=== PATIENT | male | born 1960 | race African-American/Black ===

== ENCOUNTER 2018-07-04 09:59 | Observation (INO) | payer OTHER ==
[2018-07-04] MEDS ORDERED: LOSARTAN POTASSIUM 50 MG TABLET (FP) PO ONE (10:22)
--- NOTE | 2018-07-04 10:40 | PDOC ---
Attending Attestation - Resident Resident Name: Alber Tong - ED Attending Attestation I have performed the following: I have examined & evaluated the patient, The case was reviewed & discussed with the resident, I agree w/resident's findings & plan, Exceptions are as noted - HPI HPI: 07/04/18 10:40 58yo M hx HTN, HL, TIA (2014, 2011) presents with elevated BP, SOB, b/l leg heaviness after running out of his BP medications 2-3 days ago. Pt states that he normally takes losartan 100mg once a day. Upon waking up, pt noted his legs felt heavy and he felt SOB when ambulating. Symptoms resolved when he sat down. Due to symptoms and running out of BP meds, he checked his BP and found it to be 180/110. Pt found an enalapril pill lying around the house and took it at 6: 45AM. Pt states he was previously on enalapril about 2yrs ago. When he checked his BP and found it to be 210/150, he presented to the ED for evaluation. PT states the heaviness in his left leg is greater than his right leg. Denies headache, chest pain, abdominal pain, N/V/D, weakness or numbness, rashes. [place] [place] [place] [place] he takes losartan 100mg/HCTZ 25mg and last filled a 30 day supply 03/07/18. Pt states he often misses a 1-2 doses per week of his medications. - Physicial Exam PE: 07/04/18 11:28 GENERAL: Awake, alert, and fully oriented, in no acute distress HEAD: No signs of trauma EYES: PERRLA, EOMI, sclera anicteric, conjunctiva clear ENT: Auricles normal inspection, hearing grossly normal, nares patent, oropharynx clear without exudates. Moist mucosa NECK: Normal ROM, supple, no lymphadenopathy, JVD, or masses LUNGS: Breath sounds equal, clear to auscultation bilaterally. No wheezes, and no crackles HEART: Regular rate and rhythm, normal S1 and S2, no murmurs, rubs or gallops ABDOMEN: Soft, nontender, normoactive bowel sounds. No guarding, no rebound. No masses EXTREMITIES: Normal range of motion, no edema. No clubbing or cyanosis. No cords, erythema, or tenderness NEUROLOGICAL: Normal speech, cranial nerves intact, negative pronator drift, 5/ 5 strength in all 4 extremities, normal sensation to light touch in all 4 extremities, normal cerebellar exam, normal gait, normal reflexes and tone SKIN: Warm, Dry, normal turgor, no rashes or lesions noted. - Medical Decision Making 07/04/18 11:29 58yo M hx HTN, HL, TIA presents to the ED with elevated BP, SOB, and L>R leg heaviness upon waking up this morning. BP elevated initially to 200s/100s, now has settled out to 180/108. Exam wnl with no objective neuro deficits. DDx includes hypertensive urgency vs emergency. Given pt last filled 30 day supply of BP meds on 03/07/18, likely elevated BP 2/2 med non compliance. EKG also reveals LVH suggesting chronically elevated BP. In light of LLE heaviness, will obtain CTH and consider MRI. SOB may be 2/2 ischemia, elevated BP or CHF. Pt has no chest or abd pain to suggest aortic dissection as cause of LE heaviness. Also pulses in LE are 2+ bounding distally. BP is equal b/l. Plan -labs -UA -CTH -anticipate admission Heart Score/ECG Review #1 07/04/18 12:20 Twelve-lead EKG was performed and reviewed by me. Normal sinus rhythm, rate 83. Normal axis. No ST elevations.+ LVH. No previous EKGs to compare.
[2018-07-04 10:47] LABS: BASO % 1.1 % (0-2.0); EOS % 1.6 % (0-4.5); HEMOGLOBIN 14.1 GM/dL (11.7-16.9); LYMPH % 18.2 % (8-40); MCH 28.7 pg (25.7-33.7); MCHC 34.3 g/dl (32.0-35.9); MEAN CELL VOLUME 83.7 fl (80-96); MONO % 9.6 % (3.8-10.2); NEUT % 69.5 % (42.8-82.8); PLATELET COUNT 197 K/MM3 (134-434); RDW 15.3 % (11.9-15.9); WHITE BLOOD COUNT 5.8 K/mm3 (4.0-10.0)
[2018-07-04 10:55] LABS: INR 0.99 (0.83-1.09); PROTHROMBIN TIME (PATIENT) 11.7 SEC (9.7-13.0)
--- NOTE | 2018-07-04 10:58 | PDOC ---
History of Present Illness - General Chief Complaint: Blood Pressure Problem Stated Complaint: HYPERTENSION/CANDELARIA LEG PAIN Time Seen by Provider: 07/04/18 10:12 History Source: Patient Exam Limitations: No Limitations - History of Present Illness Initial Comments: 07/04/18 10:40 The patient is a 58M with a PMH of HTN, HLD, TIA x 2 (2011, 2014) who presents to the ER for complaints of elevated BP. The patient states that he woke up this morning and felt "heaviness" in his legs when he was walking, L>R. He also admits to mild SOB, but is unsure if it is related to exertion. He checked his BP and noted a BP of 200's/100's. He took a 2 year old enalapril that he had and this did not bring his BP down. He denies changes in vision, numbness, tingling, weakness, CP, SOB, cough, nausea, vomiting, abdominal, or back pain. Past History - Past Medical History Allergies/Adverse Reactions: Allergies Allergy/AdvReac Type Severity Reaction Status Date / Time No Known Allergies Allergy Verified 07/04/18 10:09 Home Medications: Ambulatory Orders Aspirin 81 mg PO DAILY 07/04/18 Atorvastatin Calcium [Lipitor] 40 mg PO HS 07/04/18 Enalapril Maleate [Vasotec] 40 mg PO ONCE 07/04/18 Losartan Potassium [Cozaar] 100 mg PO DAILY 07/04/18 COPD: No HTN: Yes Hypercholesterolemia: Yes - Surgical History Abdominal Surgery: Yes (hernia) - Suicide/Smoking/Psychosocial Hx Smoking History: Never smoked Review of Systems - Review of Systems Able to Perform ROS?: Yes Comments:: 07/04/18 10:59 GENERAL/CONSTITUTIONAL: No fever or chills. No weakness. HEAD, EYES, EARS, NOSE AND THROAT: No change in vision. No ear pain or discharge. No sore throat. CARDIOVASCULAR: Positive for elevated BP. No chest pain, palpitations, or lightheadedness. RESPIRATORY: Positive for SOB. No cough, wheezing, or hemoptysis. GASTROINTESTINAL: No nausea, vomiting, diarrhea, constipation, or abdominal pain. GENITOURINARY: No dysuria, frequency, hematuria, or change in urination. MUSCULOSKELETAL: Positive for leg heaviness. No joint or muscle swelling or pain. No neck or back pain. SKIN: No rash or lesions. NEUROLOGIC: No headache, numbness, tingling, focal weakness, loss of consciousness, or change in strength/sensation. ENDOCRINE: No increased thirst. No abnormal weight change. HEMATOLOGIC/LYMPHATIC: No anemia, easy bleeding, or history of blood clots. ALLERGIC/IMMUNOLOGIC: No hives or skin allergy. Is the patient limited Malawian proficient: No *Physical Exam - Vital Signs Last Vital Signs Temp Pulse Resp BP Pulse Ox 99.2 F 91 H 25 H 183/107 H 98 07/04/18 10:12 07/04/18 10:37 07/04/18 10:37 07/04/18 10:37 07/04/18 10:37 - Physical Exam Comments: 07/04/18 11:07 GENERAL: Well developed, well nourished. Awake and alert. No acute distress. HEENT: Normocephalic, atraumatic. Hearing grossly normal. Moist mucous membranes. PERRLA, EOMI. No conjunctival pallor. Sclera are non-icteric. NECK: Supple. Full ROM. No JVD. CARDIOVASCULAR: Regular rate and rhythm. No murmurs, rubs, or gallops. Distal pulses are 2+ and symmetric. PULMONARY: No evidence of respiratory distress. Lungs clear to auscultation bilaterally. No wheezing, rales or rhonchi. ABDOMINAL: Soft. Non-tender. Non-distended. No rebound or guarding. GENITOURINARY: No CVA tenderness bilaterally. MUSCULOSKELETAL: Normal range of motion at all joints. No bony deformities or tenderness. EXTREMITIES: No cyanosis. No clubbing. No edema. No calf tenderness or swelling. SKIN: Warm and dry. Normal capillary refill. No rashes. No jaundice. NEUROLOGICAL: Alert, awake, appropriate. Cranial nerves 2-12 intact. No deficits to light touch and temperature in lower extremities. 5/5 strength in quadriceps, hamstrings, and gastrocnemius. Normoreflexic in the lower extremities. Normal speech. Gait is normal without ataxia. PSYCHIATRIC: Cooperative. Good eye contact. Appropriate mood and affect. Moderate Sedation - Procedure Monitoring Vital Signs: Procedure Monitoring Vital Signs Temperature 99.2 F 07/04/18 10:12 Pulse Rate 91 H 07/04/18 10:37 Respiratory Rate 25 H 07/04/18 10:37 Blood Pressure 183/107 H 07/04/18 10:37 O2 Sat by Pulse Oximetry (%) 98 07/04/18 10:37 Heart Score/ECG Review #1 ECG reviewed & interpreted by me at: 11:09 General ECG Interpretation: Sinus Rhythm, Normal Rate, Normal Intervals, No acute ischemic changes Compared to previous ECG there are: Previous ECG unavail 07/04/18 11:09 NSR vent rate 85 IA 170 QRS 84 QTc 432 No STD or ROBERT No signs of acute ischemia LVH noted in aVL ED Treatment Course - LABORATORY CBC & Chemistry Diagram: 07/04/18 10:30 07/04/18 10:30 - RADIOLOGY Radiology Studies Ordered: Category Date Time Status CHEST X-RAY PORTABLE* [RAD] Stat Radiology 07/04/18 10:12 Ordered - Medications Given in the ED: ED Medications Discontinued Medications Generic Name Dose Route Start Last Admin Trade Name Freq PRN Reason Stop Dose Admin Losartan Potassium 100 mg 07/04/18 10:22 07/04/18 10:36 Cozaar - PO 07/04/18 10:23 Not Given ONCE ONE Medical Decision Making - Medical Decision Making 07/04/18 11:09 The patient is a 58M with a PMH of HTN, HLD, TIA's who presents to the ER with complaints of lower extremity heaviness, SOB, and elevated BP concerning for hypertensive urgency, ICH, and possible CVA/TIA. Pt states that he took his medication between 6-7am after noting his elevated BP after the onset of symptoms, making him out of the window for any TPA. Exam unremarkable. EKG shows LVH. Pending labs and imaging. Of note, the pharmacy was called and he has not filled his 30 day HTN prescription (losartan/HCTZ 100/25) since February 2018. 07/04/18 11:44 Labs WNL. Cr WNL. Troponin negative. CXR negative. CTH negative on preliminary read, pending official read. 07/04/18 12:[address] Mccoy for recommendations as pt as subjective heaviness in his legs. 07/04/18 13:07 Dr. Mccoy does not believe this is a stroke. I have endorsed the patient to Dr. Vazquez for admission. *DC/Admit/Observation/Transfer Diagnosis at time of Disposition: Elevated blood pressure reading, Leg heaviness - Discharge Dispostion Condition at time of disposition: Guarded Decision to Admit order: Yes - Referrals - Patient Instructions - Post Discharge Activity
[2018-07-04 11:18] LABS: ALBUMIN 3.9 g/dl (3.4-5.0); ALK PHOS 68 U/L (45-117); ANION GAP 7 MMOL/L (8-16); BILIRUBIN,TOTAL 0.3 mg/dL (0.2-1); BLOOD UREA NITROGEN 11 mg/dL (7-18); CALCIUM 8.6 mg/dL (8.5-10.1); CHLORIDE 104 mmol/L (98-107); CO2 28 mmol/L (21-32); CREATININE 1.2 mg/dL (0.55-1.3); GLUCOSE,RANDOM 93 mg/dL (74-106); MAGNESIUM 1.8 mg/dL (1.8-2.4); POTASSIUM 3.9 mmol/L (3.5-5.1); SGOT/AST 21 U/L (15-37); SGPT/ALT 27 U/L (13-61); SODIUM 140 mmol/L (136-145); TOT PROT 7.8 g/dl (6.4-8.2)
[2018-07-04] MEDS ORDERED: LOSARTAN 50MG/HCTZ 12.5MG 1 TAB (FP) PO ONE ×2 (14:00→19:00)
--- NOTE | 2018-07-04 14:14 | HP ---
CHIEF COMPLAINT: heaviness in legs PCP: in [place] HISTORY OF PRESENT ILLNESS: The patient is a 58M with a PMH of HTN, HLD, TIA x 2 (2011, 2014) who presents to the ER for complaints of elevated BP. The patient states that he woke up this morning and felt "heaviness" in his legs when he was walking, L>R. He denies sob. He checked his BP and noted a BP of 200 's/100's. He took a 2 year old enalapril that he had and this did not bring his BP down. He denies changes in vision, numbness, tingling, weakness, CP, SOB, cough, nausea, vomiting, abdominal, or back pain. In ER his initial BP found to be MAP 151 and later on it decreased to 134. Pt states his heaviness in legs is getting better as his BP is getting better. ER course was notable for: (1)cbc, cmp (2)ct head (3) Recent Travel: no PAST MEDICAL HISTORY: as above Social History: Smoking:no Alcohol:no Drugs: no Family History: father had stroke in his forties Allergies No Known Allergies Allergy (Verified 07/04/18 10:09) HOME MEDICATIONS: Home Medications Medication Instructions Recorded Aspirin 81 mg PO DAILY 07/04/18 Atorvastatin Calcium [Lipitor] 40 mg PO HS 07/04/18 Enalapril Maleate [Vasotec] 40 mg PO ONCE 07/04/18 Losartan Potassium [Cozaar] 100 mg PO DAILY 07/04/18 REVIEW OF SYSTEMS CONSTITUTIONAL: Absent: fever, chills, diaphoresis, generalized weakness, malaise, loss of appetite, weight change HEENT: Absent: rhinorrhea, nasal congestion, throat pain, throat swelling, difficulty swallowing, mouth swelling, ear pain, eye pain, visual changes CARDIOVASCULAR: Absent: chest pain, syncope, palpitations, irregular heart rate, lightheadedness , peripheral edema RESPIRATORY: Absent: cough, shortness of breath, dyspnea with exertion, orthopnea, wheezing, stridor, hemoptysis GASTROINTESTINAL: Absent: abdominal pain, abdominal distension, nausea, vomiting, diarrhea, constipation, melena, hematochezia GENITOURINARY: Absent: dysuria, frequency, urgency, hesitancy, hematuria, flank pain, genital pain MUSCULOSKELETAL: Absent: myalgia, arthralgia, joint swelling, back pain, neck pain SKIN: Absent: rash, itching, pallor HEMATOLOGIC/IMMUNOLOGIC: Absent: easy bleeding, easy bruising, lymphadenopathy, frequent infections ENDOCRINE: Absent: unexplained weight gain, unexplained weight loss, heat intolerance, cold intolerance NEUROLOGIC: Absent: headache, focal weakness or paresthesias, dizziness, unsteady gait, seizure, mental status changes, bladder or bowel incontinence PSYCHIATRIC: Absent: anxiety, depression, suicidal or homicidal ideation, hallucinations. PHYSICAL EXAMINATION Vital Signs - 24 hr 07/04/18 07/04/18 07/04/18 10:12 10:37 12:16 Temperature 99.2 F Pulse Rate 94 H Pulse Rate [ 91 H 79 Apical] Respiratory 18 25 H 16 Rate Blood Pressure 214/120 H Blood Pressure 183/107 H 177/109 H [Right] O2 Sat by Pulse 97 98 96 Oximetry (%) GENERAL: Awake, alert, and fully oriented, in no acute distress. HEAD: Normal with no signs of trauma. EYES: Pupils equal, round and reactive to light, extraocular movements intact, sclera anicteric, conjunctiva clear. No lid lag. EARS, NOSE, THROAT: Ears normal, nares patent, oropharynx clear without exudates. Moist mucous membranes. NECK: Normal range of motion, supple without lymphadenopathy, JVD, or masses. LUNGS: Breath sounds equal, clear to auscultation bilaterally. No wheezes, and no crackles. No accessory muscle use. HEART: Regular rate and rhythm, normal S1 and S2 without murmur, rub or gallop. ABDOMEN: Soft, nontender, not distended, normoactive bowel sounds, no guarding, no rebound, no masses. MUSCULOSKELETAL: Normal range of motion at all joints. No bony deformities or tenderness. No CVA tenderness. UPPER EXTREMITIES: 2+ pulses, warm, well-perfused. No cyanosis. No clubbing. No peripheral edema. LOWER EXTREMITIES: warm, well-perfused. No calf tenderness. No peripheral edema. NEUROLOGICAL: Cranial nerves II-XII intact. Normal speech. Normal gait. PSYCHIATRIC: Cooperative. Good eye contact. Appropriate mood and affect. SKIN: Warm, dry, Laboratory Results - last 24 hr 07/04/18 07/04/18 07/04/18 10:30 10:30 10:30 WBC 5.8 RBC 4.90 Hgb 14.1 Hct 41.0 MCV 83.7 MCH 28.7 MCHC 34.3 RDW 15.3 Plt Count 197 MPV 8.0 Absolute Neuts (auto) 4.1 Neutrophils % 69.5 Lymphocytes % 18.2 Monocytes % 9.6 Eosinophils % 1.6 Basophils % 1.1 Nucleated RBC % 0 PT with INR 11.70 INR 0.99 Sodium 140 Potassium 3.9 Chloride 104 Carbon Dioxide 28 Anion Gap 7 L BUN 11 Creatinine 1.2 Creat Clearance w eGFR > 60 Random Glucose 93 Calcium 8.6 Magnesium 1.8 Total Bilirubin 0.3 AST 21 ALT 27 Alkaline Phosphatase 68 Creatine Kinase 250 Creatine Kinase Index 0.5 CK-MB (CK-2) 1.3 Troponin I < 0.02 Total Protein 7.8 Albumin 3.9 ASSESSMENT/PLAN: HTN urgency gave him losartan 50mg/thiazide 50/12.5 monitor vitals monitor intake output cardiac monitoring echo carotid doppler frequent neuro check bring down blood pressure slowly. HLD continue home meds lipid profile H/o tia twice fluid: orally allowed electrolyte: repeat in am nutrition: low salt diet dvt pro: scd gi pro: not required dispo: obs tele Visit type - Emergency Visit Emergency Visit: Yes ED Registration Date: 07/04/18 Care time: The patient presented to the Emergency Department on the above date and was hospitalized for further evaluation of their emergent condition. - New Patient This patient is new to me today: Yes Date on this admission: 07/04/18 - Critical Care Critical Care patient: No
--- NOTE | 2018-07-04 15:33 | PN ---
Teaching Attending Note Name of Resident: Dante Cuba ATTENDING PHYSICIAN STATEMENT I saw and evaluated the patient. I reviewed the resident's note and discussed the case with the resident. I agree with the resident's findings and plan as documented. SUBJECTIVE: Mr Neri is a pleasant 58 year old male who comes in with bilateral lower extremity heaviness/weakness. He says that he has been out of his blood pressure medication since February and has not had it refilled. He has not been checking his bp at home and has not seen his PCP since that time. He says this morning he woke up and his legs felt heavy and weak. 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 He also says he was a little short of breath with this. He checked his blood pressure and it is 200s/100s so he came in for further evaluation. He otherwise is without complaint. He denies fevers, chills, lightheadedness, dizziness, passing out, chest pain, nausea, vomiting, abdominal pain, diarrhea, constipation, difficulty or pain on urination, or swelling. He is asking to go home. PMHx -HTN PSHx -none Allergies -NKDA Medications -none, supposed to be taking losartan HCT SHx -denies tobacco, alcohol, drug use FHx -father with stroke ROS -full review of systems obtained, as per HPI and otherwise negative OBJECTIVE: Last Vital Signs Temp Pulse Resp BP Pulse Ox 37.3 C 79 16 177/109 H 96 07/04/18 10:12 07/04/18 12:16 07/04/18 12:16 07/04/18 12:16 07/04/18 12:16 Gen: nad Pulm: ctab w/o w/r/r CV: rrr w/o m/r/g Abd: +bs, s/nt/nd Ext: no c/c/e, 4/5 strength in BLE CBC, BMP 07/04/18 10:30 07/04/18 10:30 ASSESSMENT AND PLAN: -admit to tele observation -check ECHO and carotid ultrasound -PT to see -weakness secondary to HTN urgency, restart losartan HCT -plan for discharge tomorrow Problem List - Problems (1) Hypertensive urgency Code(s): I16.0 - HYPERTENSIVE URGENCY (2) Leg weakness Code(s): R29.898 - OTH SYMPTOMS AND SIGNS INVOLVING THE MUSCULOSKELETAL SYSTEM Qualifiers: Laterality: bilateral Qualified Code(s): R29.898 - Other symptoms and signs involving the musculoskeletal system
--- NOTE | 2018-07-04 15:41 | EKG ---
Test Reason : Blood Pressure : / mmHG Vent. Rate : 083 BPM Atrial Rate : 083 BPM P-R Int : 170 ms QRS Dur : 084 ms QT Int : 368 ms P-R-T Axes : 040 000 034 degrees QTc Int : 432 ms NORMAL SINUS RHYTHM POSSIBLE LEFT ATRIAL ENLARGEMENT LEFT VENTRICULAR HYPERTROPHY ABNORMAL ECG NO PREVIOUS ECGS AVAILABLE Confirmed by ANGELA WOOD, JOSE ([id number]) on 07/04/2018 3:41:18 PM Referred By: Confirmed By:JOSE MILLER MD
--- NOTE | 2018-07-04 16:25 | ECHO ---
Name: SHARON BRYAN E Exam:Adult Echocardiogram Study Date: 07/04/2018 02:13 PM Age: 58 yrs Reason For Study: HYPERTENSIVE URGENCY Height: 72 in Weight: 250 lb BSA: 2.3 m2 MMode/2D Measurements & Calculations IVSd: 0.97 cm Ao root diam: 3.2 cm LVIDd: 4.9 cm LA dimension: 4.0 cm LVIDs: 3.0 cm LVPWd: 0.91 cm EDV(Teich): 110.7 ml LVOT diam: 2.5 cm ESV(Teich): 33.9 ml TAPSE: 2.3 cm Doppler Measurements & Calculations MV E max boom: 47.4 cm/sec Ao V2 max: 138.7 cm/sec MV A max boom: 76.5 cm/sec Ao max P.7 mmHg MV E/A: 0.62 MV dec time: 0.23 sec SMITHA(V,D): 2.9 cm2 LV V1 max P.5 mmHg TR max boom: 133.8 cm/sec LV V1 max: 78.7 cm/sec TR max P.2 mmHg Med Peak E' Boom: 4.1 cm/sec Med E/e': 11.6 Lat Peak E' Boom: 5.8 cm/sec Lat E/e': 8.1 Procedure A complete two-dimensional transthoracic echocardiogram was performed (2D, M-mode, Doppler and color flow Doppler). Left Ventricle The left ventricular size, thickness and function are normal. The left ventricular ejection fraction is normal. Ejection Fraction = 60-65%. The left ventricular wall motion is normal. Right Ventricle The right ventricle is normal in size and function. Atria Normal left and right atrial size and function. Mitral Valve There is no mitral regurgitation noted. Tricuspid Valve There is trace tricuspid regurgitation. There was insufficient TR detected to calculate RV systolic p ressure. Aortic Valve No hemodynamically significant valvular aortic stenosis. No aortic regurgitation is present. Pulmonic Valve There is no pulmonic valvular regurgitation. Great Vessels The aortic root is normal size. Pericardium/Pleura There is no pericardial effusion. Interpretation Summary The left ventricular size, thickness and function are normal The right ventricle is normal in size and function. There is trace tricuspid regurgitation. MD Darrion Almeida 07/04/2018 04:24 PM
[2018-07-04 18:13] VITALS: BMI 33.8
[2018-07-04] MEDS ORDERED: ATORVASTATIN CA 20 MG TABLET (FP) PO SCH (22:00)
[2018-07-05 06:46] LABS: BASO % 0.8 % (0-2.0); EOS % 3.3 % (0-4.5); HEMATOCRIT 39.8 % (35.4-49); HEMOGLOBIN 13.4 GM/dL (11.7-16.9); LYMPH % 29.1 % (8-40); MCH 28.1 pg (25.7-33.7); MCHC 33.7 g/dl (32.0-35.9); MEAN CELL VOLUME 83.5 fl (80-96); MEAN PLT VOLUME 8.2 fl (7.5-11.1); MONO % 11.5 % (3.8-10.2); NEUT % 55.3 % (42.8-82.8); PLATELET COUNT 195 K/MM3 (134-434); RBC 4.77 M/mm3 (4.00-5.60); RDW 15.1 % (11.9-15.9); WHITE BLOOD COUNT 4.8 K/mm3 (4.0-10.0)
[2018-07-05 07:28] LABS: ALBUMIN 3.5 g/dl (3.4-5.0); ALK PHOS 66 U/L (45-117); ANION GAP 7 MMOL/L (8-16); BILIRUBIN,TOTAL 0.4 mg/dL (0.2-1); BLOOD UREA NITROGEN 15 mg/dL (7-18); CALCIUM 8.6 mg/dL (8.5-10.1); CHLORIDE 102 mmol/L (98-107); CHOLESTEROL 136 mg/dL (50-200); CO2 30 mmol/L (21-32); CREATININE 1.4 mg/dL (0.55-1.3); GLUCOSE,RANDOM 84 mg/dL (74-106); HDL CHOLESTEROL 38 mg/dL (40-60); MAGNESIUM 2.1 mg/dL (1.8-2.4); PHOSPHOROUS 4.3 mg/dL (2.5-4.9); POTASSIUM 3.8 mmol/L (3.5-5.1); SGOT/AST 17 U/L (15-37); SGPT/ALT 25 U/L (13-61); SODIUM 138 mmol/L (136-145); TOT PROT 7.3 g/dl (6.4-8.2); TRIGLYCERIDES 98 mg/dL (0-150)
[2018-07-05 09:25] VITALS: BP 159/100; PULSE 74; TEMP 98.1
[2018-07-05] MEDS ORDERED: PT OWN MED DRAWER 7, Y5N ONE (09:45)
[2018-07-05] MEDS ORDERED: LOSARTAN 50MG/HCTZ 12.5MG 1 TAB (FP) PO SCH (10:00)
--- NOTE | 2018-07-05 10:11 | CONSULT ---
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 He took his blood pressure once he got home and noted it was in 200's systolic, which prompted him to go to the hospital. He denies chest pain, SOB, headache, weakness, or changes in vision during that time. He reports he has not followed up recently with PCP or manager utility. PMHX: HTN, HLD, "TIAs" 2011 with resolved "imbalance" and slurred speech, 2014 with resolved L sided weakness, Medications: lipitor, ASA 81, Losartan/HCTZ 100/25 Social: nonsmoker FH: significant for father with stroke at age 42, uncle with stroke Review of systems is significant for "throbbing" bi-temporal headaches about once every 2 weeks with associated nausea and vomiting, especially when "my blood pressure is high," again, associated with noncompliance with BP meds. Advil is usually effective. He reports persistent L leg "heaviness" that has not resolved like the right leg, and has never experienced this before. Head CT: Mild, diffuse atrophy with Periventricular microvascular changes; EKG: normal sinus Carotid duplex doppler: Mild intimal thickening. Labs: A1C 6.1, HDL 38 PARESH: BP 160-170/100 Obese, (-) bruit, Cor reg, (-) Chris's, (-) SLR, Distal pulses present NEURO EXAM: Mentation/Speech: Normal. CNII-XII: EOM full. Full torres appreciated. Motor: No drift. Normal strength tone and bulk throughout. Areflexic at knees and AJ's B/L. Toes downgoing. Coordination: No FTN dystaxia. Romberg - Sensation: Normal to vibration Gait: Normal including heels and toes. 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 Appreciate consult with cardiology and telemetry, maintain BPs in the normal range (120/70) Order B12, homocysteine level, ESR, CRP Thank you very much. Xavi Mccoy MD
--- NOTE | 2018-07-05 11:54 | DS ---
Physical Exam: SUBJECTIVE: Patient seen and examined OBJECTIVE: Vital Signs Period Temp Pulse Resp BP Sys/Townsend Pulse Ox Last 24 Hr 98.1 F-99.0 F 57-79 16-20 133-177/92-109 96-99 PHYSICAL EXAM GENERAL: Awake, alert, and fully oriented, in no acute distress. HEAD: Normal with no signs of trauma. EYES: Pupils equal, round and reactive to light, extraocular movements intact, sclera anicteric, conjunctiva clear. No lid lag. EARS, NOSE, THROAT: Ears normal, nares patent, oropharynx clear without exudates. Moist mucous membranes. NECK: Normal range of motion, supple without lymphadenopathy, JVD, or masses. LUNGS: Breath sounds equal, clear to auscultation bilaterally. No wheezes, and no crackles. No accessory muscle use. HEART: Regular rate and rhythm, normal S1 and S2 without murmur, rub or gallop. ABDOMEN: Soft, nontender, not distended, normoactive bowel sounds, no guarding, no rebound, no masses. MUSCULOSKELETAL: Normal range of motion at all joints. No bony deformities or tenderness. No CVA tenderness. UPPER EXTREMITIES: 2+ pulses, warm, well-perfused. No cyanosis. No clubbing. No peripheral edema. LOWER EXTREMITIES: warm, well-perfused. No calf tenderness. No peripheral edema. NEUROLOGICAL: Cranial nerves II-XII intact. Normal speech. Normal gait. PSYCHIATRIC: Cooperative. Good eye contact. Appropriate mood and affect. SKIN: Warm, dry, LABS Laboratory Results - last 24 hr 07/04/18 07/05/18 07/05/18 10:30 05:30 05:30 WBC 4.8 RBC 4.77 Hgb 13.4 Hct 39.8 MCV 83.5 MCH 28.1 MCHC 33.7 RDW 15.1 Plt Count 195 MPV 8.2 Absolute Neuts (auto) 2.7 Neutrophils % 55.3 D Lymphocytes % 29.1 D Monocytes % 11.5 H Eosinophils % 3.3 D Basophils % 0.8 Nucleated RBC % 0 Sodium 138 Potassium 3.8 Chloride 102 Carbon Dioxide 30 Anion Gap 7 L BUN 15 Creatinine 1.4 H Creat Clearance w eGFR 51.69 Random Glucose 84 Hemoglobin A1c % Calcium 8.6 Phosphorus 4.3 Magnesium 2.1 Total Bilirubin 0.4 AST 17 ALT 25 Alkaline Phosphatase 66 Creatine Kinase Index 0.5 CK-MB (CK-2) 1.3 C-Reactive Protein 0.5 H Total Protein 7.3 Albumin 3.5 Triglycerides 98 Cholesterol 136 Total LDL Cholesterol 86 HDL Cholesterol 38 L Vitamin B12 437 07/05/18 05:30 WBC RBC Hgb Hct MCV MCH MCHC RDW Plt Count MPV Absolute Neuts (auto) Neutrophils % Lymphocytes % Monocytes % Eosinophils % Basophils % Nucleated RBC % Sodium Potassium Chloride Carbon Dioxide Anion Gap BUN Creatinine Creat Clearance w eGFR Random Glucose Hemoglobin A1c % 6.1 Calcium Phosphorus Magnesium Total Bilirubin AST ALT Alkaline Phosphatase Creatine Kinase Index CK-MB (CK-2) C-Reactive Protein Total Protein Albumin Triglycerides Cholesterol Total LDL Cholesterol HDL Cholesterol Vitamin B12 HOSPITAL COURSE: The patient is a 58M with a PMH of HTN, HLD, TIA x 2 (2011, 2014) who presents to the ER for complaints of elevated BP. The patient states that he woke up this morning and felt "heaviness" in his legs when he was walking, L>R. He denies sob. He checked his BP and noted a BP of 200's/100's. He took a 2 year old enalapril that he had and this did not bring his BP down. He denies changes in vision, numbness, tingling, weakness, CP, SOB, cough, nausea, vomiting, abdominal, or back pain. In ER his initial BP found to be MAP 151 and later on it decreased to 134. Pt states his heaviness in legs is getting better as his BP is getting better. In hospital pt was diagnosed with hypertensive urgency. Carotid Doppler ( no significant stenosis)and echo ( LV and RV normal, mild TR)was done. Pt was given PO medication for BP and BP came down. Pt also had slight increase in his creatnine. For which his losartan/ thiazide ahs been stopped and started on amlodipine. pt advised to get repeat bmp with his primary and is also advised to drink plenty of liquid. Follow up with your primary with in one week Take all the blood pressure medicine and cholesterol medicine as you were taking it before. Drink plenty of liquid around 2-3 L a day Get your blood work done BMP with your primary care to check your kidney function. Your Cr in hospital is 1.4 which could have increased because of high blood pressure. hold your losartan/thiazide for now as they can also increase creatinine. Start them after discussing it with your primary care. We have started you on amlodipine 10 mg daily. Check your blood pressure daily and make a log. Present a log to your primary doctor. If you again get headache, nausea, vomiting, chest pain or any other new symptoms then contact doctor or go to er. Date of Admission:07/04/18 Date of Discharge: 07/05/18 Minutes to complete discharge: 45 Discharge Summary Reason For Visit: SOB Current Active Problems Elevated blood pressure reading (Acute) Hypertensive urgency (Acute) Leg heaviness (Acute) Leg weakness (Acute) Condition: Guarded - Instructions Diet, Activity, Other Instructions: Follow up with your primary with in one week Take all the blood pressure medicine and cholesterol medicine as you were taking it before. Drink plenty of liquid around 2-3 L a day Get your blood work done BMP with your primary care to check your kidney function. Your Cr in hospital is 1.4 which could have increased because of high blood pressure. hold your losartan/thiazide for now as they can also increase creatinine. Start them after discussing it with your primary care. We have started you on amlodipine 10 mg daily. Check your blood pressure daily and make a log. Present a log to your primary doctor. If you again get headache, nausea, vomiting, chest pain or any other new symptoms then contact doctor or go to er. Referrals: ON STAFF,NOT [Primary Care Provider] - - Home Medications Comprehensive Discharge Medication List: Ambulatory Orders Aspirin 81 mg PO DAILY 07/04/18 Atorvastatin Calcium [Lipitor] 40 mg PO HS 07/04/18 Amlodipine Besylate 10 mg PO DAILY #30 tablet 07/05/18 Atorvastatin Ca [Lipitor] 40 mg PO HS #30 tablet 07/05/18 This patient is new to me today: No Emergency Visit: Yes ED Registration Date: 07/04/18 Care time: The patient presented to the Emergency Department on the above date and was hospitalized for further evaluation of their emergent condition. Critical Care patient: No - Discharge Referral Referred to [facility] Med P.C.: No
[2018-07-06] MEDS ORDERED: CLOPIDOGREL BISULFATE 75 MG TABLET (FP) PO SCH (10:00)
[2018-07-06] MEDS ORDERED: ASPIRIN COATED 81 MG TABLET.EC PO SCH (10:00)
== END 2018-07-05 13:30 | disposition home or self-care (01) ==
LOC: JER 09:59 → JERBED 12:13 → J4W 17:06
PROVIDERS: ADMIT Internal Medicine; ATTEND Internal Medicine
DX: I16.0 Hypertensive urgency (principal); R29.898 Other symptoms and signs involving the musculoskeletal system; E78.5 Hyperlipidemia, unspecified; Z86.73 Personal history of transient ischemic attack (TIA), and cerebral infarction without residual deficits; I67.4 Hypertensive encephalopathy; G43.909 Migraine, unspecified, not intractable, without status migrainosus; Z91.14 Patient's other noncompliance with medication regimen; Z79.82 Long term (current) use of aspirin
CPT/HCPCS: 36415; 70450-TC; 71045-TC-FY; 80053; 80061; 82550; 82553; 82607; 83036; 83721; 83735; 84100; 84484; 85025; 85610; 86140; 93005; 93010; 93306-TC; 93880-TC; 97116-GP; 97161-GP; 99285-25; G0378